=== PATIENT | male | born 1970 ===

== ENCOUNTER → 2023-10-26 07:43 | Outpatient (BNVA) | payer BC, SELFPAY | PROVIDERS: Family Provider Family Medicine; PCP Family Medicine; Visit Provider Family Medicine | DX: I10 Essential (primary) hypertension (principal); E11.9 Type 2 diabetes mellitus without complications | CPT/HCPCS: 80053; 80061; 83036; 85025 ==

== ENCOUNTER 2023-11-24 07:17 | Outpatient (CLI) | payer BC, SELFPAY ==
--- NOTE | 2023-11-24 | ECG_ITS ---
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 Interpretive Statements NAME OF STUDY: TREADMILL STRESS TEST INDICATION: [Chest Pain] EXERCISE DATA: The patient was exercised by Julio protocol. Baseline heart rate was 75 beats per minute. Baseline blood pressure was 141/67 millimeters of mercury. Maximal predicted heart rate was 168 beats per minute. Maximum heart rate achieved was 133, which was 79% of the maximum predicted heart rate. Maximum blood pressure was 188/75 millimeters of mercury. Total exercise time was 7 minutes 45 seconds. Maximum METs achieved was 10. The reason for ending the test was inability to reach target heart rate and significant symptoms of chest pain with radiation to left arm. The patient complained of chest pain with radiation to left arm during the stress test, which then resolved at the end of the test. ELECTROCARDIOGRAM: BASELINE: Showed sinus rhythm, normal axis, no significant ST-T changes at the baseline noted. [] EXERCISE: At the peak exercise level, [] [address] depressions are seen in inferior leads and leads V5 V6. RECOVERY: During the recovery period, heart rate dropped appropriately. No significant ST-T changes in the recovery suggestive of ischemia noted. [] CONCLUSION: 1. Exercise capacity is good. 2. Heart rate response was suboptimal 3. Blood pressure response was appropriate 4. Symptoms suggestive 5. As patient could not reach target heart rate secondary to symptoms of chest pain with radiation to left arm, stress test is indeterminate for ischemia. However 1-1.5mm ST depressions were seen in inferior leads II, III, aVF and leads V5 V6. Electronically Signed On 11-30-2023 13:36:45 CDT by Boby Vanegas M.D. [id number]
[2023-11-24 07:24] VITALS: BMI 29.5
--- NOTE | 2023-11-24 09:21 | SUR.PHASEI ---
STRESS NOTE/EKG CHANGES/CARDIAC SYMPTOMS Patient unable to meet THR for nuclear injection. Max effort obtained at 79%. EKG changes were noted in the anterior and lateral wall on the stress EKG at peak exercise. The patient did experience shortness of breath and chest pain with arm radiation during the exam at max effort. I notified Dr Kelley of the changes and the symptoms and he request the rest and peak stress ekg's be sent to him to evaluate. After his review he stated it would be ok to cancel the mibi portion of the exam and put the test through as a plain treadmill stress today. Patient fully recovered to baseline and dischaged in stable condition. He was aware of Dr Zhong's changes to the exam today. He is to expect a call from his office next week for evaluation. I made registration and scheduling aware of the changes to the exam today and placed the new orders for plain treadmill stress testing.
[2023-11-24 09:48] VITALS: BP 135/74; PULSE 84
== END 2023-11-24 07:18 | disposition home or self-care (01) ==
PROVIDERS: Family Provider Family Medicine; PCP Family Medicine; Visit Provider Family Medicine
DX: R07.9 Chest pain, unspecified (principal)
CPT/HCPCS: 36415; 93017

== ENCOUNTER 2023-12-11 17:43 | Emergency (ER) | payer BC, SELFPAY ==
[2023-12-11 17:49] VITALS: BP 194/97; PULSE 76; RESP 18; TEMP 36.8; O2SAT 97; BMI 27.7
--- NOTE | 2023-12-11 17:53 | ECG_ITS ---
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 Measurements Intervals [place] Rate: 71 P: 56 VT: 148 QRS: 67 QRSD: 92 T: 59 QT: 362 QTc: 396 Interpretive Statements SINUS RHYTHM No previous ECG available for comparison Electronically Signed On 12-11-2023 22:51:55 CDT by Karen Araujo M.D. [email or web address].[email or web address] Direct/store/[id number] f
--- NOTE | 2023-12-11 18:08 | XRR_ITS ---
PROCEDURE INFORMATION: Exam: XR Chest Exam date and time: 12/11/2023 6:16 PM Age: 53 years old Clinical indication: Pain; Chest pressure; Additional info: Cp TECHNIQUE: Imaging protocol: Radiologic exam of the chest. Views: 1 view. COMPARISON: No relevant prior studies available. FINDINGS: Lungs: Unremarkable. No consolidation or mass. Pleural spaces: Unremarkable. No pleural effusion. No pneumothorax. Heart/Mediastinum: Unremarkable. No cardiomegaly. Bones/joints: Unremarkable. XR/XR chest 1V portable [id number] IMPRESSION: No acute findings.
[2023-12-11 18:15] LABS: Basophils # 0.2 10^3/uL (0.0-0.1); Basophils % 1.9 %; Eosinophils % 9.5 %; Hematocrit 40.1 % (37-53); Lymphocytes # 2.7 10^3/uL (0.8-4.8); Lymphocytes % 26.5 %; Mean Corpuscular HGB Conc 32.4 g/dL (30-55); Mean Corpuscular Hemoglobin 28.9 pg (27-33); Mean Corpuscular Volume 89.1 fl (82-101); Mean Platelet Volume 9.7 fL (7.4-10.4); Monocytes # 0.7 10^3/uL (0.2-0.9); Monocytes % 6.6 %; Neutrophils # 5.53 10^3/uL (1.8-7.7); Neutrophils % 54.3 %; Nucleated Red Blood Cells % 0 %; Platelet Count 384 10^3/cmm (157-399); Red Cell Distribution Width 13.7 % (12.1-15.1); White Blood Count 10.17 10^3/uL (3.29-11.43)
--- NOTE | 2023-12-11 18:15 | ED_ITS ---
Documented by User: DEANNE Holguin 12/11/23 20:39 HPI - Chest Pain 2 General: Chief Complaint: Chest Pain Stated Complaint: chest pains Time Seen by Provider: 12/11/23 17:59 Source: patient Mode of arrival: ambulatory Limitations: no limitations History of Present Illness: This patient is a 53-year-old male who presents to the emergency department complaining of left-sided chest pain since 0430 this morning. He states he noticed the pain while rolling out of bed, has had it in the past and had previous workups that were negative. He notes he recently underwent a cardiac stress test with his primary care doctor, though he had to stop 7 minutes into it due to shortness of breath and chest pains. Because of this he was referred to Dr. Munoz, who he is due to see tomorrow. However due to his pain today he presents for evaluation, stating that it radiates to his left shoulder and has been constant since this morning. He also notes he was concerned when he saw his blood pressure was elevated despite taking his medications as normal. He notes he took his isosorbide as prescribed, and this did not improve his pain. He is denying any associated symptoms, including no shortness of breath, nausea, diaphoresis, peripheral edema, syncope, dizziness, lightheadedness, or any other symptoms at this time. He does note that the pain is a tightness sensation, though somewhat mild. He states he has no personal history of cardiomyopathy, heart attacks, or strokes. He also notes that on his mother side he has no cardiac history. He is unsure of his dad side. No history of coronary arteriogram, stents, echocardiogram, or other cardiac workup other than the recent stress test. MD complaint: chest pain Onset (ago): hour(s) Timing of current episode: constant Prior episodes: Yes Onset: during rest Pain location: left chest Pain radiation: left shoulder Severity: mild Quality: tightness Relieving factors: nothing Exacerbating factors: nothing Associated symptoms: Reports no associated symptoms; Deny abdominal pain, dyspnea, fever(s), nausea, palpitations or vomiting Treatment prior to arrival: nitroglycerin Review of Systems 2 General: Reports: 10 or more systems reviewed and unremarkable except in HPI and below Const: Denies: fever(s), chills or fatigue Eyes: Denies: change in vision ENMT: Denies: throat pain, ear or mastoid pain or nasal discharge Card: Reports: chest pain; Denies: palpitations, swelling of feet/ankles or lightheadedness Resp: Denies: dyspnea, productive cough or wheezing GI: Denies: abdominal pain, nausea, vomiting, diarrhea or constipation : Denies: flank pain, difficulty urinating, dysuria or urinary frequency Musc: Denies: neck pain or back pain Skin/Breast: Denies: rash Neuro: Denies: headache(s), numbness in extremities or weakness in extremities PFSH ED 2 PFSH: Medical History Chest pain Diabetes mellitus Hypertension Social History Smoking and tobacco/nicotine status: former use of tobacco/nicotine Physical Exam 2 Const: COMMON NORMALS: no acute distress, patient oriented x3 and no limitations GENERAL APPEARANCE: cooperative, comfortable and well developed ORIENTATION/CONSCIOUSNESS: Yes awake, Yes oriented to person, Yes oriented to place and Yes oriented to time HENMT: COMMON NORMALS: normocephalic, atraumatic and hearing grossly normal bilaterally HEAD & SCALP: normocephalic and atraumatic Eye: COMMON NORMALS: Equal, round and reactive pupils present, EOMs intact bilaterally and conjunctivae normal CONJUNCTIVA: Yes conjunctivae normal P UPIL: Yes Equal, round and reactive pupils present Neck/C-Spine: COMMON NORMALS: full ROM, supple and no JVD Resp: COMMON NORMALS: normal respiratory effort, No retractions, No use of accessory muscles and clear to auscultation bilaterally AUSCULTATION: clear to auscultation bilaterally Cardio: COMMON NORMALS: no JVD, regular rate, regular rhythm, No clicks present (Cardio), No murmurs present (Cardio) and No rub (Cardio) RATE: r egular rate RHYTHM: regular rhythm GI: COMMON NORMALS: Normal to inspection, nondistended, normoactive bowel sounds present, Soft to palpation and non-tender AUSCULTATION: Yes normoactive bowel sounds PALPATION: Yes Soft to palpation RECTAL EXAM: Yes deferred Extremity: COMMON NORMALS: normal to inspection, full ROM and capillary refill normal Neuro: COMMON NORMALS: patient oriented x3, moves all extremities, no focal motor deficits and no sensory deficits noted SENSORIUM/ORIENTATION: Yes oriented to person, Yes oriented to place and Yes oriented to time Psych: COMMON NORMALS: mental status grossly normal and Normal thought process present THOUGHT PROCESS: Normal thought process present Skin: COMMON NORMALS: no rashes or lesions noted GENERAL SKIN EXAM: no rashes or lesions noted Course 2 Vital Signs: Vital signs: Vital Signs Temperature 98.2 F 12/11/23 17:49 Pulse Rate 75 12/11/23 20:58 Respiratory Rate 16 12/11/23 19:50 Blood Pressure 166/91 12/11/23 20:58 Pulse Oximetry 98 12/11/23 20:58 Oxygen Delivery Me thod Room Air 12/11/23 20:57 MDM - Chest Pain Medical Decision Making Patient was seen for chest pain beginning this morning. Recently had a stress test that he failed, and was referred to cardiology who he is set to see tomorrow. On arrival his blood pressure was elevated though the rest of his vitals were unremarkable. He was also stating the pain was still there, unrelieved by his isosorbide. His examination was unremarkable. Initial troponin was negative. Chest x-ray negative. EKG showed normal sinus rhythm with no acute ST segment changes. Other blood work also negative including CBC, CMP, lipase. PT and PTT normal. His repeat EKG and troponin were also negative with no change. No further workup necessary due to his normal workup, and his blood pressure is decreased from initial. He has the appointment tomorrow that he will keep as planned, and he will continue his normal blood pressure medications at home. Discussed in thorough detail regards to return to the emergency department, to which the patient endorses understanding. Lab Data I reviewed the patient's lab results. 12/11/23 18:05 12/11/23 18:05 Radiology Impressions Chest X-Ray 12/11/23 18:08 IMPRESSION: No acute findings. Laboratory Results WBC 10.17 10^3/uL (3.29-11.43) 12/11/23 18:05 RBC 4.50 10^6/uL (3.85-5.65) 12/11/23 18:05 Hgb 13.00 g/dL (11.27-16.99) 12/11/23 18:05 Hct 40.1 % (37-53) 12/11/23 18:05 MCV 89.1 fl (82-101) 12/11/23 18:05 MCH 28.9 pg (27-33) 12/11/23 18:05 MCHC 32.4 g/dL (30-55) 12/11/23 18:05 RDW 13.7 % (12.1-15.1) 12/11/23 18:05 Plt Count 384 10^3/cmm (157-399) 12/11/23 18:05 MPV 9.7 fL (7.4-10.4) 12/11/23 18:05 Neut % (Auto) 54.3 % 12/11/23 18:05 Lymph % (Auto) 26.5 % 12/11/23 18:05 [place] % (Auto) 6.6 % 12/11/23 18:05 Eos % (Auto) 9.5 % 12/11/23 18:05 Baso % (Auto) 1.9 % 12/11/23 18:05 Neut # (Auto) 5.53 10^3/uL (1.8-7.7) 12/11/23 18:05 Lymph # (Auto) 2.7 10^3/uL (0.8-4.8) 12/11/23 18:05 [place] # (Auto) 0.7 10^3/uL (0.2-0.9) 12/11/23 18:05 Eos # (Auto) 1.0 10^3/uL (0.0-0.8) H 12/11/23 18:05 Baso # (Auto) 0.2 10^3/uL (0.0-0.1) H 12/11/23 18:05 Nucleated RBC % (auto) 0 % 12/11/23 18:05 Nucleated RBCs # 0.0 /100WBC 12/11/23 18:05 PT 12.90 SECONDS (12.1-14.9) 12/11/23 18:05 INR 0.95 (0.8-1.2) 12/11/23 18:05 APTT 24.8 SECONDS (23.9-36.7) 12/11/23 18:05 Sodium 138 mmol/L (136-145) 12/11/23 18:05 Potassium 4.2 mmol/L (3.5-5.1) 12/11/23 18:05 Chloride 99 mmol/L (98-107) 12/11/23 18:05 Carbon Dioxide 26 mmol/L (22-29) 12/11/23 18:05 Anion Gap 17.2 (5-19) 12/11/23 18:05 BUN 10 mg/dL (6-20) 12/11/23 18:05 Creatinine 0.8 mg/dL (0.7-1.2) 12/11/23 18:05 GFR Calculation 101.5 mL/min (90-130) 12/11/23 18:05 Glucose 105 mg/dL (65-115) 12/11/23 18:05 Calculated Osmolality 285 mOsm/kg (285-295) 12/11/23 18:05 Calcium 9.5 mg/dL (8.5-10.5) 12/11/23 18:05 Total Bilirubin 0.6 mg/dL (0.15-1.2) 12/11/23 18:05 AST 31 U/L (0-40) 12/11/23 18:05 ALT 42 U/L (0-41) H 12/11/23 18:05 Alkaline Phosphatase 79 U/L (40-130) 12/11/23 18:05 Troponin T Baseline < 6 ng/L (0-15) 12/11/23 18:05 Troponin T 120 Minute 6.00 ng/L (0-15) 12/11/23 20:07 Delta Troponin T 0.23543 ABS# (0-10) 12/11/23 20:07 Total Protein 7.5 g/dL (6.6-8.7) 12/11/23 18:05 Albumin 4.9 g/dL (3.5-5.2) 12/11/23 18:05 Globulin 2.6 g/dL (1.3-4.6) 12/11/23 18:05 Lipase 39 U/L (13-60) 12/11/23 18:05 Urine Color Colorless (Yellow) 12/11/23 19:08 Urine Appearance Clear (CLEAR) 12/11/23 19:08 Urine pH 5 (5-7) 12/11/23 19:08 Ur Specific [place] 1.000 (1.005-1.030) L 12/11/23 19:08 Urine Protein Neg (Negative) 12/11/23 19:08 Urine Glucose (UA) Norm (Normal) 12/11/23 19:08 Urine Ketones Negative (Negative) 12/11/23 19:08 Urine Blood Neg (Negative) 12/11/23 19:08 Urine Nitrate Negative (Negative) 12/11/23 19:08 Urine Bilirubin Neg (Negative) 12/11/23 19:08 Urine Urobilinogen Norm mg/dL (Negative) 12/11/23 19:08 Ur Leukocyte Esterase Negative (Negative) 12/11/23 19:08 All radiology interpretation(s) finalized by discharge Discharge Plan Discharge Patient Disposition: Home Clinical Impression: Atypical chest pain Condition: Stable Prescriptions: No Action lisinopril 20 mg tablet 20 mg PO BID Qty: 60 11RF glimepiride 2 mg tablet See Rx Instructions .ROUTE .COMPLEX Qty: 30 11RF Dose Instruction: TAKE 1 TABLET BY MOUTH ONCE DAILY FOR DIABETES Rx Instructions: TAKE 1 TABLET BY MOUTH ONCE DAILY FOR DIABETES metformin 1,000 mg tablet See Rx Instructions .ROUTE .COMPLEX Qty: 60 11RF Dose Instruction: Take 1 tablet by mouth twice daily Rx Instructions: Take 1 tablet by mouth twice daily aspirin 81 mg capsule 81 mg PO DAILY pantoprazole [Protonix] 40 mg tablet,delayed release (DR/EC) 40 mg PO BID 42 Days Qty: 84 1RF metoprolol tartrate 25 mg tablet 25 mg PO BID Qty: 180 4RF Discharge Orders: Discharge ED (Routine); Ordered 12/11/23 Ordered By: Artur Hughes Referrals: Adriano Kelley MD [Primary Care Provider] - Discharge Diet: Usual diet Discharge Activity: Resume usual activity Patient Instructions: Chest Pain (ED) Activity Restrictions/Additional Instructions: Continue taking medications as prescribed. Follow-up with Dr. Munoz tomorrow as scheduled. Please return if you have any new or concerning symptoms. Coding Level of Care Code ED Enterprise Sales Executive for Abeg Fwd Documented by User: Jonathan Jha DO 12/14/23 06:12 HPI - Chest Pain 2 General: Chief Complaint: Chest Pain Stated Complaint: chest pains Time Seen by Provider: 12/11/23 17:59 PFSH ED 2 PFSH: Medical History Chest pain Diabetes mellitus Hypertension Social History Smoking and tobacco/nicotine status: former use of tobacco/nicotine Course 2 Vital Signs: Vital signs: Vital Signs Temperature 98.2 F 12/11/23 17:49 Pulse Rate 75 12/11/23 20:58 Respiratory Rate 16 12/11/23 19:50 Blood Pressure 166/91 12/11/23 20:58 Pulse Oximetry 98 12/11/23 20:58 Oxygen Delivery Me thod Room Air 12/11/23 20:57 MDM - Chest Pain Medical Decision Making Patient was seen for chest pain beginning this morning. Recently had a stress test that he failed, and was referred to cardiology who he is set to see tomorrow. On arrival his blood pressure was elevated though the rest of his vitals were unremarkable. He was also stating the pain was still there, unrelieved by his isosorbide. His examination was unremarkable. Initial troponin was negative. Chest x-ray negative. EKG showed normal sinus rhythm with no acute ST segment changes. Other blood work also negative including CBC, CMP, lipase. PT and PTT normal. His repeat EKG and troponin were also negative with no change. No further workup necessary due to his normal workup, and his blood pressure is decreased from initial. He has the appointment tomorrow that he will keep as planned, and he will continue his normal blood pressure medications at home. Discussed in thorough detail regards to return to the emergency department, to which the patient endorses understanding. Chart reviewed Lab Data 12/11/23 18:05 12/11/23 18:05 Radiology Impressions Chest X-Ray 12/11/23 18:08 IMPRESSION: No acute findings. Laboratory Results WBC 10.17 10^3/uL (3.29-11.43) 12/11/23 18:05 RBC 4.50 10^6/uL (3.85-5.65) 12/11/23 18:05 Hgb 13.00 g/dL (11.27-16.99) 12/11/23 18:05 Hct 40.1 % (37-53) 12/11/23 18:05 MCV 89.1 fl (82-101) 12/11/23 18:05 MCH 28.9 pg (27-33) 12/11/23 18:05 MCHC 32.4 g/dL (30-55) 12/11/23 18:05 RDW 13.7 % (12.1-15.1) 12/11/23 18:05 Plt Count 384 10^3/cmm (157-399) 12/11/23 18:05 MPV 9.7 fL (7.4-10.4) 12/11/23 18:05 Neut % (Auto) 54.3 % 12/11/23 18:05 Lymph % (Auto) 26.5 % 12/11/23 18:05 [place] % (Auto) 6.6 % 12/11/23 18:05 Eos % (Auto) 9.5 % 12/11/23 18:05 Baso % (Auto) 1.9 % 12/11/23 18:05 Neut # (Auto) 5.53 10^3/uL (1.8-7.7) 12/11/23 18:05 Lymph # (Auto) 2.7 10^3/uL (0.8-4.8) 12/11/23 18:05 [place] # (Auto) 0.7 10^3/uL (0.2-0.9) 12/11/23 18:05 Eos # (Auto) 1.0 10^3/uL (0.0-0.8) H 12/11/23 18:05 Baso # (Auto) 0.2 10^3/uL (0.0-0.1) H 12/11/23 18:05 Nucleated RBC % (auto) 0 % 12/11/23 18:05 Nucleated RBCs # 0.0 /100WBC 12/11/23 18:05 PT 12.90 SECONDS (12.1-14.9) 12/11/23 18:05 INR 0.95 (0.8-1.2) 12/11/23 18:05 APTT 24.8 SECONDS (23.9-36.7) 12/11/23 18:05 Sodium 138 mmol/L (136-145) 12/11/23 18:05 Potassium 4.2 mmol/L (3.5-5.1) 12/11/23 18:05 Chloride 99 mmol/L (98-107) 12/11/23 18:05 Carbon Dioxide 26 mmol/L (22-29) 12/11/23 18:05 Anion Gap 17.2 (5-19) 12/11/23 18:05 BUN 10 mg/dL (6-20) 12/11/23 18:05 Creatinine 0.8 mg/dL (0.7-1.2) 12/11/23 18:05 GFR Calculation 101.5 mL/min (90-130) 12/11/23 18:05 Glucose 105 mg/dL (65-115) 12/11/23 18:05 Calculated Osmolality 285 mOsm/kg (285-295) 12/11/23 18:05 Calcium 9.5 mg/dL (8.5-10.5) 12/11/23 18:05 Total Bilirubin 0.6 mg/dL (0.15-1.2) 12/11/23 18:05 AST 31 U/L (0-40) 12/11/23 18:05 ALT 42 U/L (0-41) H 12/11/23 18:05 Alkaline Phosphatase 79 U/L (40-130) 12/11/23 18:05 Troponin T Baseline < 6 ng/L (0-15) 12/11/23 18:05 Troponin T 120 Minute 6.00 ng/L (0-15) 12/11/23 20:07 Delta Troponin T 0.12040 ABS# (0-10) 12/11/23 20:07 Total Protein 7.5 g/dL (6.6-8.7) 12/11/23 18:05 Albumin 4.9 g/dL (3.5-5.2) 12/11/23 18:05 Globulin 2.6 g/dL (1.3-4.6) 12/11/23 18:05 Lipase 39 U/L (13-60) 12/11/23 18:05 Urine Color Colorless (Yellow) 12/11/23 19:08 Urine Appearance Clear (CLEAR) 12/11/23 19:08 Urine pH 5 (5-7) 12/11/23 19:08 Ur Specific [place] 1.000 (1.005-1.030) L 12/11/23 19:08 Urine Protein Neg (Negative) 12/11/23 19:08 Urine Glucose (UA) Norm (Normal) 12/11/23 19:08 Urine Ketones Negative (Negative) 12/11/23 19:08 Urine Blood Neg (Negative) 12/11/23 19:08 Urine Nitrate Negative (Negative) 12/11/23 19:08 Urine Bilirubin Neg (Negative) 12/11/23 19:08 Urine Urobilinogen Norm mg/dL (Negative) 12/11/23 19:08 Ur Leukocyte Esterase Negative (Negative) 12/11/23 19:08 Discharge Plan Discharge Patient Disposition: Home Clinical Impression: Atypical chest pain Condition: Stable Prescriptions: No Action lisinopril 20 mg tablet 20 mg PO BID Qty: 60 11RF glimepiride 2 mg tablet See Rx Instructions .ROUTE .COMPLEX Qty: 30 11RF Dose Instruction: TAKE 1 TABLET BY MOUTH ONCE DAILY FOR DIABETES Rx Instructions: TAKE 1 TABLET BY MOUTH ONCE DAILY FOR DIABETES metformin 1,000 mg tablet See Rx Instructions .ROUTE .COMPLEX Qty: 60 11RF Dose Instruction: Take 1 tablet by mouth twice daily Rx Instructions: Take 1 tablet by mouth twice daily aspirin 81 mg capsule 81 mg PO DAILY pantoprazole [Protonix] 40 mg tablet,delayed release (DR/EC) 40 mg PO BID 42 Days Qty: 84 1RF metoprolol tartrate 25 mg tablet 25 mg PO BID Qty: 180 4RF Discharge Orders: Discharge ED (Routine); Ordered 12/11/23 Ordered By: Artur Hughes Referrals: Adriano Kelley MD [Primary Care Provider] - Discharge Diet: Usual diet Discharge Activity: Resume usual activity Patient Instructions: Chest Pain (ED) Activity Restrictions/Additional Instructions: Continue taking medications as prescribed. Follow-up with Dr. Munoz tomorrow as scheduled. Please return if you have any new or concerning symptoms. Coding Level of Care Code ED Enterprise Sales Executive for Ina Hannon
[2023-12-11] MEDS: aspirin 81 mg Chew Tablet 324 MG PO (18:17)
[2023-12-11 18:23] VITALS: BP 177/92; PULSE 71; RESP 20; O2SAT 97
[2023-12-11 18:27] LABS: INR 0.95 (0.8-1.2)
[2023-12-11 18:28] LABS: Partial Thromboplastin Time 24.8 SECONDS (23.9-36.7)
[2023-12-11 18:31] LABS: Troponin(5th) Baseline < 6 ng/L (0-15)
[2023-12-11 18:36] LABS: Alanine Aminotransferase 42 U/L (0-41); Albumin Level 4.9 g/dL (3.5-5.2); Alkaline Phosphatase 79 U/L (40-130); Aspartate Amino Transferase 31 U/L (0-40); Blood Urea Nitrogen 10 mg/dL (6-20); Calcium 9.5 mg/dL (8.5-10.5); Carbon Dioxide 26 mmol/L (22-29); Chloride 99 mmol/L (98-107); Creatinine Clr Calc Pharmacy 131.4524; Globulin 2.6 g/dL (1.3-4.6); Glomerular Filtration Rate 101.5 mL/min (90-130); Glucose 105 mg/dL (65-115); Lipase 39 U/L (13-60); Osmolality Calculated 285 mOsm/kg (285-295); Sodium 138 mmol/L (136-145); Total Bilirubin 0.6 mg/dL (0.15-1.2); Total Protein 7.5 g/dL (6.6-8.7)
[2023-12-11 18:39] LABS: Anion Gap 17.2 (5-19); Potassium 4.2 mmol/L (3.5-5.1)
[2023-12-11 19:11] LABS: Add Urine Microscopic? NO; Charge for UA Resulting for Rev
[2023-12-11 19:14] LABS: Bilirubin Urine Neg (Negative); Blood Urine Neg (Negative); Glucose Urine UA Norm (Normal); Ketones Urine Negative (Negative); Leukocyte Esterase Urine Negative (Negative); Nitrate Urine Negative (Negative); Protein Urine Neg (Negative); Urine Appearance Clear (CLEAR); Urine Color Colorless (Yellow); Urobilinogen Urine Norm (Negative); pH Urine 5 (5-7)
[2023-12-11 19:19] VITALS: BP 173/92; PULSE 67; RESP 17; O2SAT 97
--- NOTE | 2023-12-11 19:49 | PC.NURSE ---
This nurse verified with provider Ellen that it was okay for patient to take his evening home medications of metformin, lisinopril, protonix, and isosorbide, as well as eat. Ellen stated that it would be okay for patient to take meds and eat. Nurse relayed information to patient.
[2023-12-11 19:50] VITALS: BP 169/92; PULSE 73; RESP 16; O2SAT 98
--- NOTE | 2023-12-11 20:02 | ECG_ITS ---
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 Measurements Intervals [place] Rate: 66 P: 35 TX: 173 QRS: 60 QRSD: 96 T: 48 QT: 373 QTc: 393 Interpretive Statements SINUS RHYTHM Compared to ECG 12/11/2023 17:48:22 No significant changes Electronically Signed On 12-11-2023 22:54:41 CDT by Karen Araujo M.D. [email or web address] [email or web address] community hospitalClever Cloudkettering health [id number]
[2023-12-11 20:22] LABS: Troponin 5 2HR Delta 0.00001 ABS# (0-10)
[2023-12-11 20:57] VITALS: BP 166/91; PULSE 75; O2SAT 98
[2023-12-11 20:58] VITALS: BP 166/91; PULSE 75; O2SAT 98
== END 2023-12-11 20:52 | disposition home or self-care (01) ==
PROVIDERS: Emergency Provider Physician Assistant; PCP Family Medicine
DX: R07.89 Other chest pain (principal); Z79.84 Long term (current) use of oral hypoglycemic drugs; Z79.82 Long term (current) use of aspirin; E11.9 Type 2 diabetes mellitus without complications; I10 Essential (primary) hypertension; Z87.891 Personal history of nicotine dependence
CPT/HCPCS: 71045; 80053; 81003; 83690; 84484; 85025; 85610; 85730; 93005; 99285

== ENCOUNTER 2023-12-26 07:55 | Outpatient (CLI) | payer BC, SELFPAY ==
[2023-12-26 08:10] LABS: Basophils # 0.2 10^3/uL (0.0-0.1); Basophils % 2.2 %; Eosinophils # 0.9 10^3/uL (0.0-0.8); Eosinophils % 11.5 %; Hematocrit 38.5 % (37-53); Lymphocytes # 1.6 10^3/uL (0.8-4.8); Lymphocytes % 21.4 %; Mean Corpuscular HGB Conc 31.9 g/dL (30-55); Mean Corpuscular Hemoglobin 28.9 pg (27-33); Mean Corpuscular Volume 90.6 fl (82-101); Mean Platelet Volume 9.8 fL (7.4-10.4); Monocytes # 0.5 10^3/uL (0.2-0.9); Monocytes % 6.4 %; Neutrophils # 4.39 10^3/uL (1.8-7.7); Neutrophils % 57.1 %; Nucleated Red Blood Cells % 0 %; Platelet Count 323 10^3/cmm (157-399); Red Blood Count 4.25 10^6/uL (3.85-5.65); Red Cell Distribution Width 13.9 % (12.1-15.1); White Blood Count 7.68 10^3/uL (3.29-11.43)
[2023-12-26 08:28] LABS: Anion Gap 14.8 (5-19); Blood Urea Nitrogen 8 mg/dL (6-20); Calcium 10.4 mg/dL (8.5-10.5); Carbon Dioxide 26 mmol/L (22-29); Chloride 103 mmol/L (98-107); Glomerular Filtration Rate 101.5 mL/min (90-130); Glucose 234 mg/dL (65-115); Osmolality Calculated 294 mOsm/kg (285-295); Potassium 4.8 mmol/L (3.5-5.1); Sodium 139 mmol/L (136-145)
[2023-12-26 09:19] LABS: INR 1.02 (0.83-1.21); Prothrombin Time (Patient) 13.7 Seconds (12.0-15.1)
== END 2023-12-26 07:56 | disposition home or self-care (01) ==
LOC: LAB 07:56
PROVIDERS: PCP Family Medicine; Visit Provider Internal Medicine
DX: R07.89 Other chest pain (principal); R94.39 Abnormal result of other cardiovascular function study; I10 Essential (primary) hypertension; R07.9 Chest pain, unspecified
CPT/HCPCS: 36415; 80048; 85025; 85610

== ENCOUNTER 2023-12-29 08:24 | Observation (INO) | payer BC, SELFPAY ==
[2023-12-29] VITALS (8 sets, daily range): BP systolic 142–179; BP diastolic 73–95; PULSE 66–80; RESP 16–27; TEMP 36.4–37.6; O2SAT 97–100; BMI 28.5; BMI 28.6
--- NOTE | 2023-12-29 06:00 | XACV_ITS ---
Exam Room: 2 Ht: 185 cm Wt: 98 kg BSA: 2.26 m2 Gender: Male : 1970 Any Known Allergies: Codeine Exam Priority: Routine Procedure(s): Procedure Description: Diagnostic procedure Procedure Description: PCI procedure Procedure Description: Drug Eluting Coronary Stent Procedure Description: PTCA Procedure Description: Miscellaneous Procedure Description: ACT Procedure Description: Coronary Angiography Diagnostic Cath Status: Elective Diagnostic Findings * INDICATION: Worsening angina/ abnormal stress test. * Left Main has no significant disease. * Circumflex has no significant disease. * Patient has a dual LAD system. Diagonal artery is larger in size compared to LAD. After take off of large sized diagonal artery, mid LAD had severe 70-80% stenosis. * Right Coronary Artery has no disease. * Coronary angiography shows co-dominance. PCI Status: Elective PCI Indication: Other Interventional Findings * Procedure detail: We engaged left main artery with XB 3.0 guide catheter. IV heparin was administered to maintain anticoagulation. 0.014 run-through guidewire was used to cross the mid LAD stenosis and was put in distal vessel.. We predilated the stenosis with 2.25 x 15 mm semicompliant balloon. This was followed with placement of 2.75 x 30 mm resolute Reynaldo drug-eluting stent. At distal edge there was residual stenosis. We placed a second 2.5 x 12 mm resolute Reynaldo drug-eluting stent overlapping with the initial stent. The stents were postdilated with 2.75 x 12 mm NC balloon. At this time final angiogram was performed that showed excellent stent expansion, no residual stenosis and LUDMILA-3 flow. Guidewire and guide catheter were removed. Patient left the [place] [employer] in a stable condition.. * Mid Left Anterior Descendin% stenosis treated with a AB TREK 2.25X15 RX BALLOON, KIRILL R REYNALDO 2.75X30 ELIZABETH, KIRILL R REYNALDO 2.5X12 ELIZABETH, and KIRILL GERBER EUPHORA RX 2.74V95KB BALLOON. 0% residual stenosis, LUDMILA: 3 flow. Conclusions 1. Severe mid LAD stenosis s/p successful revascularization with 2 stents.. 2. Mid Left Anterior Descending was treated with a Balloon, Drug Eluting Stent, Drug Eluting Stent, and Balloon. Recommendations * Dual antiplatelet therapy with aspirin and brilinta for atleast 1 year. * High intensity statin therapy. * Outpatient cardiology follow up in 4 weeks. Interventional RX Recommendation: PCI w/o planned CABG Diagnostic RX Recommendation: PCI w/o planned CABG Anticoagulation: Heparin Pressures Phase:Rest AO : 121 / 88 ( 105 ) @ 8:41:00 AM 143 / 74 ( 103 ) @ 8:53:00 AM 112 / 70 ( 90 ) @ 8:59:00 AM 80 / 37 ( 55 ) @ 9:12:00 AM 144 / 84 ( 112 ) @ 9:15:00 AM Clinical Evaluation EBL: 5mL-10mL Procedural Details Procedure Consent Obtained. Pre-Procedure Time Out. Identified patient by full name and date of as verbalized by the patient/guarantor. Does the consent match the physician's order: Yes. Accurate & Complete Informed Consent: Yes. Inpatient/Outpatient History & Physical on Chart: Yes. If H&P is completed, is and addenduem needed: No; If yes, is the addendum complete: N/A. Visualize and Verify Site with Patient/Guarantor: N/A. Relevant Radiology Images available: Yes. Pre-op teaching completed and patient verbalized understanding. The risks, benefits, and alternatives of sedation and/or procedure were discussed by physician. The patient agrees to continue. Procedure started. Current Diagnosis : Chest Pain. CSHA Clinical Fraility Score: 3: Managing Well. [place] [employer] Indications: Worsening Angina. Chest Pain Symptom Assessment: Typical Angina Symptoms. Correct patient, site and procedure confirmed by cath team. Current diagnosis: Chest Pain. PERRLA. 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 Lungs clear x 5 lobes. IV Site on Arrival: 20 gauge in the right forearm. IV Fluids: 0.9% NaCl at KVO. 0 mL infused prior to floating labor gang supervisor. Oxygen started at 2liters/min via nasal canula. Pre Procedural Pulses: bilateral dorsalis pedis was 3+. Pre Procedural Pulses: bilateral posterior tibial was 2+. Pre Procedural Pulses: bilateral radial was 3+. Physician arrived. right groin was prepped with chloroprep then draped in the usual sterile fashion. right radial was prepped with chloroprep then draped in the usual sterile fashion. Baseline sample Acquired. HR: 68 BPM. Physician scrubbed in. Immediate Pre-Procedure Time Out. Correct Patient: Yes; Correct Procedure: Yes; Correct Site: Yes; Correct Patient Position: Yes; Correct Supplies: Yes; Dried Flammable Prep: Yes; Blood Products Available: N/A;. Lidocaine 1% infiltrated to the right radial. Arterial access obtained. A 5 moroccan TIG catheter in over wire. Multiple views taken of right coronary artery. Catheter removed over the exchange wire. A 5 moroccan JL3.5 catheter in over wire. Multiple views taken of left coronary artery. Catheter removed over the exchange wire. Physician review of cine films. 6 moroccan XB 3.5 guide catheter was inserted over the wire. Runthrough guidewire was advanced through the guide catheter to lesion in the mid LAD. Inflation number : 1 A AB TREK 2.25X15 RX BALLOON was prepped and advanced across the Mid LAD , then inflated to 8 TORRI for 0:17 seconds. Inflation number: 2 The AB TREK 2.25X15 RX BALLOON was reinflated across the Mid LAD, to 8 TORRI for 0:09 seconds. Inflation number: 3 The AB TREK 2.25X15 RX BALLOON was reinflated across the Mid LAD, to 8 TORRI for 0:06 seconds. Inflation number: 4 The AB TREK 2.25X15 RX BALLOON was reinflated across the Mid LAD, to 8 TORRI for 0:08 seconds. Balloon out. Inflation Number : 5 Marga Solorio REYNALDO 2.75X30 ELIZABETH -Lot Number# _[id number] EXP: 06/12/2024 was prepped and advanced across the Mid LAD. The stent was deployed at 12 TORRI for 0:20 seconds. Stent balloon out over wire. Results checked. Inflation Number : 6 A MDT R REYNALDO 2.5X12 ELIZABETH -Lot Number# _[id number] EXP: 07/13/2026 was prepped and advanced across the Mid LAD. The stent was deployed at 12 TORRI for 0:18 seconds. Inflation number: 7 The stent balloon was then re-inflated across the Mid LAD to 12 TORRI for 0:07 seconds. Stent balloon out over wire. Inflation number : 8 A MDT NC EUPHORA RX [id number] BALLOON was prepped and advanced across the Mid LAD , then inflated to 12 TORRI for 0:12 seconds. Inflation number: 9 The MDT NC EUPHORA RX [id number] BALLOON was reinflated across the Mid LAD, to 12 TORRI for 0:08 seconds. Balloon out. Results checked. Wire out. Results checked. ACT drawn. Results 359 seconds. Therapeutic limits - pre-heparin administration 90-150 seconds and monitoring heparin during a vascular procedure >250 seconds. Guide catheter out. A TR Band was successful obtaining hemostatsis at the Right Radial artery insertion site. Vital chart was stopped. Post Procedure: Pulses reassessed and unchanged. PERRLA. 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 No VTE prophylaxis required. Medication's Wasted: Nitro = 49.6 mg. Total IV fluids: 50 mL. Medication's Wasted: Other = Versed 1 mg. Medication's Wasted: Lidocaine 1% = 17 mL. Post-op diagnosis: CAD. Complications: None. Estimated blood loss: 5mL-10mL. Responsiveness - Normal response to verbal stimuli; alert and oriented, PERRLA. Airway - Unaffected, no intervention required; spontaneous ventilation. Circulation: W/N/L, pulses unchanged. Nausea/Vomiting: No. Procedure completed. Patient transferred by wheelchair to 1st floor. Access Site Site: Right Radial artery Sheath Size: 6 Fr Hemostasis Method: TR Band Hemostasis Success: Successful Procedure Medications Start: 7:23 AM Stop: 7:23 AM Medication: Versed Amount: 1 mg Route: I.V. Start: 7:26 AM Stop: 7:26 AM Medication: Fentanyl Amount: 50 mcg Route: I.V. Start: 7:31 AM Stop: 7:31 AM Medication: Versed Amount: 1 mg Route: I.V. Start: 7:32 AM Stop: 7:32 AM Medication: Nitrogylcerin Amount: 200 mcg Route: I.A. Start: 7:34 AM Stop: 7:34 AM Medication: Fentanyl Amount: 25 mcg Route: I.V. Start: 7:35 AM Stop: 7:35 AM Medication: Heparin Amount: 5000 units Route: I.V. Start: 7:46 AM Stop: 7:46 AM Medication: Fentanyl Amount: 25 mcg Route: I.V. Start: 7:54 AM Stop: 7:54 AM Medication: Versed Amount: 1 mg Route: I.V. Start: 8:06 AM Stop: 8:06 AM Medication: Nitrogylcerin Amount: 200 mcg Route: I.C. Start: 8:12 AM Stop: 8:12 AM Medication: Heparin Amount: 1000 units Route: I.V. Start: 8:20 AM Stop: 8:20 AM Medication: Brilinta Amount: 180 mg Route: P.O. I, the attending physician, have reviewed and verified all procedure medications. Yes, all medications given per verbal order History/Risk Factors Hypertension: Yes Dyslipidemia: No Peripheral Arterial Disease (PAD): No Myocardial Infarction (DC): No Obesity: No Tobacco Use: Former Prior Interventions PCI: No CABG: No Valve Surgery: No Report Signatures Finalized by Boby Vanegas MD on 01/07/2024 01:46 PM
[2023-12-29] MEDS: diphenhydrAMINE 50 mg Capsule PO (06:15)
[2023-12-29] MEDS: aspirin 325 mg Tablet PO (06:15)
--- NOTE | 2023-12-29 07:07 | W.PM.OPSUD ---
Surgery/Procedure H&P Update DATE OF PROCEDURE: December 29, 2023 DATE H&P PERFORMED: 12/12/23 H&P UPDATE INFORMATION: I have reviewed H&P completed within last 30 days, I have examined patient prior to procedure and No changes to prior documentation PREOP DIAGNOSIS: Worsening angina/abnormal stress test PRIMARY INDICATION FOR PROCEDURE: Worsening angina/abnormal stress test PLANNED PROCEDURE: Operation Date: 12/29/23 07:00 Proposed Procedures p Cardiac Catheterization 25879, R94.39(Left) - Boby Vanegas M.D Possible percutaneous coronary intervention PATIENT REASSESSED PRIOR TO SEDATION, WITH NO CHANGE NOTED: Yes PHYSICAL EXAM: alert, oriented x 3, clear to auscultation bilaterally and regular rate & rhythm AIRWAY EVAL/ANESTHESIA PLAN: normal airway, ASA III, Local Anesthesia, Risks, benefits & alternatives of sedation and/or procedure discussed and Patient agrees to continue as planned ADDITIONAL INFORMATION: Moderate sedation
--- NOTE | 2023-12-29 08:52 | PC.NURSE ---
received pt from nursery laborer pt stated he has some dull achy chest discomfort, he sated, like a heartburn. . rated 4/10 per pain scale. label maker nurse at bedside and informed floor nurse that lip cutter is aware of pain during and after procedure. Informed pt to notify nurse of pain or discomfort get any worse or unrelieved. TR band 14 cc of air intact. No hematoma, swelling or bleeding noted upon arrival to floor. call light provided to pt. educated pt on activity restrictions post radial access.
[2023-12-29 09:46] LABS: Glucose Point of Care 183 mg/dL (70-110)
[2023-12-29] MEDS: nitroglycerin 0.4 mg sublingual Tablet 0.400000000000000022 MG SUBLINGUAL ×3 (09:56→10:16)
[2023-12-29] MEDS: sodium chloride 0.9% 1,000 ML 100 ML IV (09:57)
[2023-12-29] MEDS: hyDRALAzine 20 mg/mL INJ 1 mL 10 MG IVP (09:59)
--- NOTE | 2023-12-29 10:37 | ECG_ITS ---
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 Measurements Intervals [place] Rate: 73 P: 46 NC: 157 QRS: 65 QRSD: 98 T: 48 QT: 376 QTc: 416 Interpretive Statements SINUS RHYTHM Normal EKG Compared to ECG 12/11/2023 20:02:03 No significant changes Electronically Signed On 12-29-2023 10:59:28 CDT by Lola Ortega M.D. [id number]
[2023-12-29 10:48] LABS: Glucose Point of Care 188 mg/dL (70-110)
--- NOTE | 2023-12-29 11:30 | PC.NURSE ---
1130 AM- hypotension/vasovagal episode Pt's sister called me that pt feels nauseated. Went to check on pt and he looked pale, diaphoretic, hR-58-60. 11:15 AM- BP 133/79. After 15 mins bP drop to 76/40, HR-61, trendelenburg position the pt and gave fluid bolus 1 L. 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 Dr Vanegas was notified via phone and came to room during the episode. BP- 1132AM: 85/56, HR-75; 1133AM-106/64, HR-79; 1134AM-133/75, 1136 AM-135/75.
--- NOTE | 2023-12-29 11:36 | USCV_ITS ---
Lobo Mcnally Age: 53 Gender: M : 1970 Exam Date: 12/29/2023 11:52 Ordering Phys: Boby Vanegas M.D ([email or web address]) Technologist: KIA Exam Location: [facility] [place] Indication: post cath BP: 130 / 71 HR: 71 Rhythm: Sinus Technical Quality: Adequate MEASUREMENTS (Male / Female) Normal Values 2D ECHO LVOT Diameter 2.4 cm LV Ejection Fraction MOD 2C 65.8 % LV Ejection Fraction 2C AL 65.2 % LA Diameter 3.6 cm RA Systolic Volume 4C AL 64.3 ml RA Systolic Volume 4C MOD 60.0 ml LA Sys Volume AL 91.1 cm cubed LA Sys Volume Index AL 40.4 cm cubed/m squared M-MODE LA Ao Ratio MM 1.5 AV Cusp Separation MM 2.7 cm DOPPLER AV Peak Velocity 130.0 cm/s LVOT Peak Velocity 128.0 cm/s AV Area Cont Eq vti 5.4 cm squared AV Area Cont Eq pk 4.6 cm squared MV Peak Velocity 117.0 cm/s MV Area PHT 3.8 cm squared Mitral E to A Ratio 1.8 TV Peak Velocity 142.5 cm/s TR Peak Velocity 171.0 cm/s TR Peak Gradient 11.7 mmHg TV Peak E Velocity 82.0 cm/s Right Atrial Pressure 3.0 mmHg Pulmonary Artery Systolic Pressu 14.7 mmHg PV Peak Velocity 104.0 cm/s FINDINGS Left Ventricle Left ventricle is normal in size. LV systolic function is normal with EF of 60 to 65%. No regional wall motion abnormalities are seen. Right Ventricle Normal in size and function Right Atrium Normal in size. Interatrial septum is aneurysmal. Left Atrium Dilated Mitral Valve Structurally normal mitral valve. Mild mitral regurgitation. Aortic Valve Structurally normal aortic valve. No significant stenosis or regurgitation. Tricuspid Valve Mild tricuspid regurgitation. Insufficient TR jet to calculate RVSP. Pulmonic Valve Not well visualized Pericardium Normal Aorta Normal in size IVC Appears to be normal CONCLUSIONS LV systolic function is normal with EF of 60-65% Left atrial dilation. Interatrial septum is aneurysmal. Interatrial shunting can not be ruled out as no bubble study Mild mitral regurgitation Mild tricuspid regurgitation No comparison studies are available. Boby Vanegas MD (Electronically Signed) Final Date: 29 Dec 2023 12:37 S
--- NOTE | 2023-12-29 11:38 | XR_ITS ---
WS: [id number] Portable AP upright chest, 12/29/2023 portable chest, 12/11/2023. Clinical Data: vasovagal Comparison: Portable chest, 12/11/2023 Findings: No nodules, masses or effusions are seen. The heart is normal. The pulmonary vascularity is not increased. No pneumonia or pneumothorax is seen. Monitor leads are on the chest wall. XR/XR chest 1V portable [id number] Impression: Negative chest.
--- NOTE | 2023-12-29 12:53 | PM.MISC ---
Miscellaneous Note Purpose of Documentation: Brief note Note: Patient had coronary angiogram showing severe stenosis of mid LAD (dual LAD system with diagonal bigger than LAD). He underwent successful revascularization with 2 stents.Loaded with aspirin and brilinta. Patient complained of heart burn post procedure.Was given nitro and became hypotensive transiently. ECHO was done that showed normal LV systolic function and no effusion. Heart burn has resolved. EKG has no ischemic changes. Plan for discharge tomorrow AM.
[2023-12-29] MEDS: insulin lispro 100 unit/1 mL SUBCUT ×2 (13:03→20:42)
[2023-12-29 16:38] LABS: Glucose Point of Care 118 mg/dL (70-110)
[2023-12-29] MEDS: lisinopril 20 mg Tablet PO (17:50)
[2023-12-29] MEDS: metoprolol tartrate 25 mg Tablet PO (17:50)
[2023-12-29] MEDS: ticagrelor 90 mg Tablet PO (17:50)
[2023-12-29 20:27] LABS: Glucose Point of Care 179 mg/dL (70-110)
[2023-12-30 06:19] LABS: Basophils # 0.1 10^3/uL (0.0-0.1); Basophils % 1.5 %; Eosinophils # 0.5 10^3/uL (0.0-0.8); Eosinophils % 6.6 %; Hematocrit 37.1 % (37-53); Lymphocytes # 1.6 10^3/uL (0.8-4.8); Lymphocytes % 19.8 %; Mean Corpuscular Hemoglobin 28.3 pg (27-33); Mean Corpuscular Volume 91.2 fl (82-101); Mean Platelet Volume 10.3 fL (7.4-10.4); Monocytes # 0.7 10^3/uL (0.2-0.9); Monocytes % 8.3 %; Neutrophils % 63.2 %; Nucleated Red Blood Cells % 0 %; Platelet Count 311 10^3/cmm (157-399); Red Blood Count 4.07 10^6/uL (3.85-5.65); Red Cell Distribution Width 13.7 % (12.1-15.1); White Blood Count 8.22 10^3/uL (3.29-11.43)
[2023-12-30 06:39] LABS: Anion Gap 15.1 (5-19); Blood Urea Nitrogen 9 mg/dL (6-20); Calcium 8.6 mg/dL (8.5-10.5); Carbon Dioxide 23 mmol/L (22-29); Chloride 105 mmol/L (98-107); Glomerular Filtration Rate 141.5 mL/min (90-130); Glucose 180 mg/dL (65-115); Osmolality Calculated 291 mOsm/kg (285-295); Potassium 4.1 mmol/L (3.5-5.1); Sodium 139 mmol/L (136-145)
[2023-12-30 06:47] LABS: Creatinine Clr Calc Pharmacy 177.8578
[2023-12-30 07:17] VITALS: BP 103/52; PULSE 87; RESP 14; O2SAT 95
[2023-12-30 07:46] LABS: Glucose Point of Care 164 mg/dL (70-110)
[2023-12-30] MEDS: aspirin 81 mg EC Tablet PO (08:38)
[2023-12-30] MEDS: metoprolol tartrate 25 mg Tablet PO (08:38)
[2023-12-30] MEDS: insulin lispro 100 unit/1 mL SUBCUT (08:38)
[2023-12-30] MEDS: lisinopril 20 mg Tablet PO (08:38)
[2023-12-30] MEDS: ticagrelor 90 mg Tablet PO (08:38)
--- NOTE | 2023-12-30 09:06 | P.DS_ITS ---
Discharge Providers Date of Admission: 12/29/23 08:24 Date of Discharge: December 30, 2023 Attending Provider at Admission: Boby Vanegas M.D Attending Provider at Discharge: Boby Vanegas M.D Primary Care Provider: Adriano Kelley MD Reason for Visit Reason for Visit: R94.39 Hospital Course Hospital Course This is a 53-year-old male patient who underwent a coronary angiography for her symptoms of angina yesterday which revealed significant mid LAD disease. Subsequently had a successful angioplasty with drug-eluting stent. Postprocedure patient is clinically and hemodynamically stable. He is ambulating to the bathroom. He complains of some weakness related to blood pressure somewhat on the lower side with systolic 105. Rest of the systemic inquiry unremarkable. No angina or heart failure symptoms. I adjusted dose of lisinopril from 20 mg twice a day to 20 mg once a day. Physical Exam Narrative: Currently patient is sitting on the bed is comfortable. Blood pressure 121/72. Pulse 76/min regular. Cardiovascular exam unremarkable. Lungs clear to auscultation bilaterally. Abdomen soft nontender. Lower extremity examination unremarkable. No lower extremity edema. The right radial site for arteriotomy is unremarkable. Neurological examination grossly intact. Discharge Data Studies Completed and Pending Completed Studies During Hospitalization Category Date Time Status XR chest 1V portable [id number] Stat Exams 12/29/23 11:38 Completed CV. echo complete* [id number] Stat Ultrasound 12/29/23 11:36 Completed Pending at discharge Category Date Time Status CORRECTIONAL OFFICER CAPTAIN request for service Routine Exams 12/29/23 06:00 Taken Radiology Impressions Chest X-Ray 12/29/23 11:38 Impression: Negative chest. Laboratory Results WBC 8.22 10^3/uL (3.29-11.43) 12/30/23 04:55 RBC 4.07 10^6/uL (3.85-5.65) 12/30/23 04:55 Hgb 11.50 g/dL (11.27-16.99) 12/30/23 04:55 Hct 37.1 % (37-53) 12/30/23 04:55 MCV 91.2 fl (82-101) 12/30/23 04:55 MCH 28.3 pg (27-33) 12/30/23 04:55 MCHC 31.0 g/dL (30-55) 12/30/23 04:55 RDW 13.7 % (12.1-15.1) 12/30/23 04:55 Plt Count 311 10^3/cmm (157-399) 12/30/23 04:55 MPV 10.3 fL (7.4-10.4) 12/30/23 04:55 Neut % (Auto) 63.2 % 12/30/23 04:55 Lymph % (Auto) 19.8 % 12/30/23 04:55 [place] % (Auto) 8.3 % 12/30/23 04:55 Eos % (Auto) 6.6 % 12/30/23 04:55 Baso % (Auto) 1.5 % 12/30/23 04:55 Neut # (Auto) 5.20 10^3/uL (1.8-7.7) 12/30/23 04:55 Lymph # (Auto) 1.6 10^3/uL (0.8-4.8) 12/30/23 04:55 [place] # (Auto) 0.7 10^3/uL (0.2-0.9) 12/30/23 04:55 Eos # (Auto) 0.5 10^3/uL (0.0-0.8) 12/30/23 04:55 Baso # (Auto) 0.1 10^3/uL (0.0-0.1) 12/30/23 04:55 Nucleated RBC % (auto) 0 % 12/30/23 04:55 Nucleated RBCs # 0.0 /100WBC 12/30/23 04:55 Sodium 139 mmol/L (136-145) 12/30/23 04:55 Potassium 4.1 mmol/L (3.5-5.1) 12/30/23 04:55 Chloride 105 mmol/L (98-107) 12/30/23 04:55 Carbon Dioxide 23 mmol/L (22-29) 12/30/23 04:55 Anion Gap 15.1 (5-19) 12/30/23 04:55 BUN 9 mg/dL (6-20) 12/30/23 04:55 Creatinine 0.6 mg/dL (0.7-1.2) L 12/30/23 04:55 GFR Calculation 141.5 mL/min (90-130) H 12/30/23 04:55 Glucose 180 mg/dL (65-115) H 12/30/23 04:55 POC Glucose 164 mg/dL (70-110) H 12/30/23 07:20 Calculated Osmolality 291 mOsm/kg (285-295) 12/30/23 04:55 Calcium 8.6 mg/dL (8.5-10.5) 12/30/23 04:55 Vitals Last Vital Signs Temp 99.7 F H 12/29/23 23:00 Pulse 87 12/30/23 07:17 Resp 14 12/30/23 07:17 BP 103/52 12/30/23 07:17 Pulse Ox 95 12/30/23 07:17 O2 Del Method Room Air 12/30/23 07:17 Discharge Plan Discharge Patient Disposition: Home Condition: Stable Prescriptions: New acetaminophen 325 mg Tablet 650 mg PO Q6H PRN (Reason: Mild Pain) Qty: 30 0RF Mag-Al Plus 200-200-20 mg/5 mL Suspension 30 ml PO Q15M PRN (Reason: Indigestion) Qty: 250 2RF metoprolol tartrate 25 mg Tablet 25 mg PO BID Qty: 60 6RF Brilinta 90 mg Tablet 90 mg PO BID Qty: 60 6RF lisinopril 20 mg Tablet 20 mg PO DAILY Qty: 30 6RF nitroglycerin 0.4 mg Tablet, Sublingual 0.4 mg sublingual Q5M PRN (Reason: Chest Pain) Qty: 30 1RF Continued glimepiride 2 mg tablet See Rx Instructions .ROUTE .COMPLEX Qty: 30 11RF Dose Instruction: TAKE 1 TABLET BY MOUTH ONCE DAILY FOR DIABETES Rx Instructions: TAKE 1 TABLET BY MOUTH ONCE DAILY FOR DIABETES metformin 1,000 mg tablet See Rx Instructions .ROUTE .COMPLEX Qty: 60 11RF Dose Instruction: Take 1 tablet by mouth twice daily Rx Instructions: Take 1 tablet by mouth twice daily aspirin 81 mg capsule 81 mg PO DAILY metoprolol tartrate 25 mg tablet 25 mg PO BID Qty: 180 4RF omeprazole 20 mg Tablet,Delayed Release (Dr/Ec) 20 mg PO DAILY Discontinued lisinopril 20 mg tablet 20 mg PO BID Qty: 60 11RF Discharge Orders: Discharge Order (Routine); Ordered 12/30/23 Ordered By: Lola Ortega Referrals: Anjana Boyle FNP [Nurse Practitioner] - 01/16/24 2:30 pm Adriano Kelley MD [Primary Care Provider] - 01/04/24 11:50 am Discharge Diet: Cardiac and Diabetic Patient Instructions: Ticagrelor (By mouth) (Brilinta), Coronary Angioplasty (DC), Coronary Intravascular Stent Placement (DC), Opioid Safety, Post Angiogram Home Care Instructions Stand Alone Forms: Work/School Release Discharge Attestations Time Spent in Discharge Care*: greater than 30 min Quality Metrics Clinical Quality Measures [ No reported AMI, CVA or VTE this stay] Coding Level of Care Code Acute Code for Chg Fwd Time Spent (min) 30
[2023-12-30 10:15] VITALS: BP 142/82; PULSE 87; RESP 14; O2SAT 95
== END 2023-12-30 10:23 | disposition home or self-care (01) ==
LOC: CSU 08:24
PROVIDERS: Admitting Provider Internal Medicine; PCP Family Medicine; Visit Provider Internal Medicine
DX: I25.10 Atherosclerotic heart disease of native coronary artery without angina pectoris (principal); Z95.5 Presence of coronary angioplasty implant and graft; R12 Heartburn; I08.1 Rheumatic disorders of both mitral and tricuspid valves; I10 Essential (primary) hypertension; Z87.891 Personal history of nicotine dependence
CPT/HCPCS: 36415; 36416; 71045; 80048; 82962; 85025; 85347; 93005; 93306; 93454; 96372; 96374; 96375; 96376; 99152; 99153; C1725; C1769; C1874; C1887; C1894; C9600; G0378; J0360; J1644; J1815; J2250; J3010; J3490; J7030; Q0163; Q9967

== ENCOUNTER → 2024-01-16 15:48 | Outpatient (BNVA) | payer BC, SELFPAY | PROVIDERS: PCP Family Medicine; Visit Provider Nurse Practitioner Family | DX: I25.10 Atherosclerotic heart disease of native coronary artery without angina pectoris (principal); I10 Essential (primary) hypertension | CPT/HCPCS: 80048 ==

== ENCOUNTER → 2024-01-18 07:20 | Outpatient (BNVA) | payer BC, SELFPAY | PROVIDERS: PCP Family Medicine; Visit Provider Family Medicine | DX: I10 Essential (primary) hypertension (principal) | CPT/HCPCS: 93005 ==

== ENCOUNTER → 2024-05-09 13:26 | Outpatient (BNVA) | payer BC, SELFPAY | PROVIDERS: PCP Family Medicine; Visit Provider Family Medicine | DX: H54.7 Unspecified visual loss (principal); Z01.818 Encounter for other preprocedural examination | CPT/HCPCS: 80053; 83036; 84520 ==

== ENCOUNTER → 2024-09-05 07:25 | Outpatient (BNVA) | payer BC, SELFPAY | PROVIDERS: PCP Family Medicine; Visit Provider Family Medicine | DX: I10 Essential (primary) hypertension (principal); R53.83 Other fatigue; E11.9 Type 2 diabetes mellitus without complications; I25.118 Atherosclerotic heart disease of native coronary artery with other forms of angina pectoris | CPT/HCPCS: 80053; 80061; 82607; 83036; 83880; 84403; 84443; 85025; 86140 ==

== ENCOUNTER → 2024-09-17 07:40 | Outpatient (BNVA) | payer BC, SELFPAY | PROVIDERS: PCP Family Medicine; Visit Provider Family Medicine | DX: I10 Essential (primary) hypertension (principal); E11.9 Type 2 diabetes mellitus without complications; I25.118 Atherosclerotic heart disease of native coronary artery with other forms of angina pectoris | CPT/HCPCS: 80053; 80061; 80074; 83036; 83540 ==

== ENCOUNTER → 2024-11-19 07:30 | Outpatient (BNVA) | payer BC, SELFPAY | PROVIDERS: PCP Family Medicine; Visit Provider Family Medicine | DX: R79.89 Other specified abnormal findings of blood chemistry (principal) | CPT/HCPCS: 84403 ==

== ENCOUNTER → 2024-12-19 08:05 | Outpatient (BNVA) | payer BC, SELFPAY | PROVIDERS: PCP Family Medicine; Visit Provider Family Medicine | DX: I10 Essential (primary) hypertension (principal); I25.118 Atherosclerotic heart disease of native coronary artery with other forms of angina pectoris; E11.9 Type 2 diabetes mellitus without complications; R79.89 Other specified abnormal findings of blood chemistry | CPT/HCPCS: 80053; 83036; 83690; 84153; 84403; 84443; 85025; 86140 ==

== ENCOUNTER 2025-02-20 06:03 | Day surgery (SDC) | payer BC, SELFPAY ==
[2025-02-20 06:24] VITALS: BP 117/74; PULSE 73; RESP 18; TEMP 36.4; O2SAT 99; BMI 29.7
--- NOTE | 2025-02-20 06:33 | ANES.PREANE2 ---
Pre-Anesthetic Assessment Height/Weight: Height 1.85 m Weight 102.058 kg Temp Pulse Resp BP Pulse Ox O2 Del Method 97.6 F 73 18 117/74 99 Room Air 02/20/25 06:24 02/20/25 06:24 02/20/25 06:24 02/20/25 06:24 02/20/25 06:24 02/20/25 06:24 Operation Date: 02/20/25 07:00 Proposed Procedures p Colonoscopy 43910 G0121, Z12.11(Not Applicable) - Artur Loeps MD Familial anesthetic complications: Came out tied to the bed post nasal surgery 2000 Was Beta Joey taken within 24 hours: Yes Was Clonidine taken within 24 hours: N/A Last intake: Intake Last Liquid Date 02/19/25 Last Liquid Time 21:00 Last Solid Date 02/18/25 Last Solid Time 19:00 Social No alcohol and No tobacco Exam alert, oriented x 3, clear to auscultation bilaterally and regular rate & rhythm Airway Submandibular: within normal limits Cervical ROM: within normal limits Mallampati: Class I Dentition: chipped and full History/ROS No significant history except as noted and No significant complaints Pulmonary Cough and Exertional Dyspnea CV/HEM Coronary Artery Disease and Hypertension Stent x2 December 2023, saw cardiology last month. No new changes and stable from cardiac standpoint. Hasn't used prescribed nitro >1 year. CONCLUSIONS LV systolic function is normal with EF of 60-65% Left atrial dilation. Interatrial septum is aneurysmal. Interatrial shunting can not be ruled out as no bubble study Mild mitral regurgitation Mild tricuspid regurgitation No comparison studies are available. None reported Hepatic None reported GI Gastroesophageal Reflux Disease (None this morning) Metabolic Diabetes Mellitus [facility] [place] Lower Back Pain and Osteoarthritis/DJD Neuropsych Headache (Migraines) and Neuropathy Anesthetic Plan ASA status: 3 Anesthesia: Anesthesia Evaluation, General and MAC Risk of > 500 ml blood loss (7ml/kg in children): No Medications/Allergies Home Medications ?Medication ?Instructions ?Recorded ?Confirmed ?Last Taken ?Type aspirin 81 mg capsule 81 mg PO DAILY 11/09/23 02/18/25 02/20/25 04:30 History omeprazole 20 mg tablet,delayed 20 mg PO DAILY 12/29/23 02/18/25 02/18/25 History release acetaminophen 325 mg tablet 650 mg (2 x 325 mg) PO Q6H PRN 12/30/23 02/18/25 02/18/25 Rx Mild Pain #30 tabs aluminum-mag hydroxide-simethicone 30 ml PO Q15M PRN Indigestion #250 12/30/23 02/18/25 02/18/25 Rx 200 mg-200 mg-20 mg/5 mL oral susp mL (Mag-Al Plus) blood-glucose sensor (FreeStyle #2 ea 03/18/24 02/18/25 02/18/25 Rx Ema 3 Sensor device) hydrochlorothiazide 12.5 mg tablet 12.5 mg PO DAILY #90 tabs 07/15/24 02/18/25 02/18/25 Rx glimepiride 4 mg tablet 4 mg PO BID #60 tabs 09/17/24 02/18/25 02/20/25 04:30 Rx testosterone cypionate 100 mg/mL 100 mg SUBCUT .q 14 days #10 mL 09/20/24 02/18/25 02/01/25 Rx intramuscular oil (Depo-Testosterone) clopidogrel 75 mg tablet (Plavix) 75 mg PO DAILY #30 tabs 01/07/25 02/18/25 02/12/25 Rx lisinopril 20 mg tablet 20 mg PO BID #180 tabs 01/07/25 02/18/25 02/20/25 04:30 Rx metoprolol tartrate 50 mg tablet 50 mg PO BID #60 tabs 01/07/25 02/18/25 02/20/25 04:30 Rx amlodipine 10 mg tablet 10 mg PO DAILY #30 tabs 01/16/25 02/18/25 02/18/25 Rx nitroglycerin 0.4 mg sublingual 0.4 mg sublingual Q5M PRN Chest 01/16/25 02/18/25 02/18/25 Rx tablet Pain #30 tabs semaglutide 0.25 mg or 0.5 mg (2 0.5 mg (0.736 mL) SUBCUT .Weekly 01/16/25 02/18/25 02/09/25 Rx mg/3 mL) subcutaneous pen injector #3 mL (Ozempic) metformin 1,000 mg tablet 1,000 mg PO BID 02/19/25 02/19/25 02/20/25 04:30 History Allergies Allergy/AdvReac Type Severity Reaction Status Date / Time codeine Allergy Unknown ALGY-Rash Verified 02/18/25 12:57 [facility] Anesthesia Medical History Low testosterone CAD (coronary artery disease) 2 stents in LAD 12/2023 Diabetes mellitus Hypertension Family History Mother Cancer MDS Social History Smoking and tobacco/nicotine status: never used tobacco/nicotine Data Anesthesia Cardiac Studies: Echocardiogram 12/29/23 Sestamibi Stress Test (Cardiology) 11/24/23
--- NOTE | 2025-02-20 06:56 | W.PM.OPSFHP ---
Same Day Surgery H&P Indication for Procedure/HPI DATE OF PROCEDURE: February 20, 2025 CHIEF COMPLAINT/INDICATIONFOR SURGICAL PROCEDURE: need for screening colonoscopy PREOP DIAGNOSIS: need for screening colonoscopy PLANNED PROCEDURE: Operation Date: 02/20/25 07:00 Proposed Procedures p Colonoscopy [id number], Z12.11(Not Applicable) - Artur Lopes MD Medications/Allergies* Home Medications ?Medication ?Instructions ?Recorded ?Confirmed ?Type aspirin 81 mg capsule 81 mg PO DAILY 11/09/23 02/18/25 History omeprazole 20 mg tablet,delayed 20 mg PO DAILY 12/29/23 02/18/25 History release metformin 1,000 mg tablet 1,000 mg PO BID 02/19/25 02/19/25 History Allergies/Adverse Reactions Allergy/AdvReac Type Severity Reaction Status Date / Time codeine Allergy Unknown ALGY-Rash Verified 02/18/25 12:57 Current Medications: Generic Name Dose Route Start Last Admin Trade Name Freq PRN Reason Stop Dose Admin Sodium Chloride 1,000 mls @ 15 mls/hr 02/20/25 06:08 02/20/25 06:31 Sodium Chloride 0.9% IV 02/21/25 06:07 15 mls/hr .Q24H PRN Administration COLONOSCOPY FLUIDS Pertinent History/Comorbid Conditions* Medical History (Updated 01/14/25 @ 08:16 by Artur Lopes MD) Low testosterone CAD (coronary artery disease) 2 stents in LAD 12/2023 Diabetes mellitus Hypertension Family History (Updated 01/14/25 @ 07:58 by DICK Slater) Cancer Mother MDS Social History Smoking and tobacco/nicotine status: never used tobacco/nicotine Pertinent Exam Findings alert, oriented x 3, clear to auscultation bilaterally and regular rate & rhythm Recommendations Surgery/Procedure today Coding Level of Care Code Acute Code for Chg Fwd
--- NOTE | 2025-02-20 07:13 | PC.NURSE ---
cecum time 0713
[2025-02-20 07:23] VITALS: BP 95/61; PULSE 65; RESP 12; TEMP 36.1; O2SAT 98
[2025-02-20 07:40] VITALS: BP 110/72; PULSE 67; RESP 17; O2SAT 100
--- NOTE | 2025-02-20 13:48 | ANE.PACU2 ---
Inpatient post-anesthesia follow up: Airway intact: Yes Vital signs: Temperature 97.0 F Pulse Rate 67 Respiratory Rate 17 Blood Pressure 110/72 Pulse Oximetry 100 Oxygen Delivery Me thod Room Air Oxygen Flow Rate Fraction of Inspir ed Oxygen Hydration adequate: Yes Nausea and vomiting: No Pain level: 1 Mental status: Baseline
== END 2025-02-20 07:52 | disposition home or self-care (01) ==
PROVIDERS: PCP Family Medicine; Visit Provider Surgery
PROC: 0DJD8ZZ Inspection of Lower Intestinal Tract, Via Natural or Artificial Opening Endoscopic (ICD-10-PCS; CPT 45378; principal; 2025-02-20 07:00)
DX: Z12.11 Encounter for screening for malignant neoplasm of colon (principal); D12.2 Benign neoplasm of ascending colon; I25.10 Atherosclerotic heart disease of native coronary artery without angina pectoris; I10 Essential (primary) hypertension; E11.40 Type 2 diabetes mellitus with diabetic neuropathy, unspecified; K21.9 Gastro-esophageal reflux disease without esophagitis; Z79.899 Other long term (current) drug therapy; Z79.82 Long term (current) use of aspirin; Z79.4 Long term (current) use of insulin; Z79.85 Long-term (current) use of injectable non-insulin antidiabetic drugs; Z95.5 Presence of coronary angioplasty implant and graft; Z79.84 Long term (current) use of oral hypoglycemic drugs
CPT/HCPCS: 36416; 45380; 82962; 88305; J2704; J7030